=== PATIENT | female | born 1980 | race Two or more races ===

== ENCOUNTER 2020-09-07 01:32 | Inpatient (IN) | payer OTHER, SELFPAY ==
[~2020-09-07] VITALS: Ht 167.6 cm; Wt 79.4 kg
[2020-09-07] MEDS ORDERED: ROPIVACAINE 0.2%/NS PREMIX 200 ML EPI ONE (01:55)
[2020-09-07] MEDS ORDERED: ROPIVACAINE 0.2%/NS PREMIX 100 ML EPI SCH (02:15)
[2020-09-07 02:30] VITALS: BP 92/50
[2020-09-07] MEDS ORDERED: OXYTOCIN 20 UNITS in LACTATED RINGERS 1,000 ML IV SCH (02:30)
[2020-09-07] MEDS ORDERED: LIDOCAINE MPF 1% 10 MG/ML VIAL INJ SCH (02:30)
[2020-09-07] MEDS ORDERED: LACTATED RINGERS 1,000 ML IV SCH (02:30)
[2020-09-07 02:39] LABS: BASOPHILS # (AUTO) 0.1 K/uL (0.00-0.22); BASOPHILS % (AUTO) 0.4 % (0.0-2.0); EOSINOPHILS % (AUTO) 0.2 % (0.0-4.0); HEMOGLOBIN 9.4 g/dL (12.0-16.0); LYMPHOCYTES # (AUTO) 0.8 K/uL (2.5-16.5); LYMPHOCYTES % (AUTO) 5.5 % (20.5-51.1); MEAN CORPUSCULAR HEMOGLOBIN 28 pg (27-31); MEAN CORPUSCULAR HGB CONC 32 g/dL (33-37); MEAN CORPUSCULAR VOLUME 86.1 fL (80-94); MONOCYTES # (AUTO) 0.5 K/uL (0.8-1.0); MONOCYTES % (AUTO) 3.5 % (1.7-9.3); NEUTROPHILS # (AUTO) 12.6 K/uL (1.8-7.7); NEUTROPHILS % (AUTO) 90.4 % (42.2-75.2); PLATELET COUNT (AUTO) 197 K/uL (140-450); RED BLOOD CELL COUNT(AUTO) 3.37 MIL/uL (4.20-5.40); RED CELL DISTRIBUTION WIDTH 14.9 % (11.6-13.7); WHITE BLOOD COUNT (AUTO) 13.9 K/uL (4.8-10.8)
[2020-09-07 03:00] LABS: ALBUMIN 2.8 g/dL (3.4-5.0); ANION GAP 16.7 (8-16); CARBON DIOXIDE 21.2 mmol/L (21-32); CREATININE 0.7 mg/dL (0.6-1.3); POTASSIUM 3.9 mmol/L (3.5-5.1); TOTAL BILIRUBIN 0.4 mg/dL (0.0-1.0)
[2020-09-07 04:25] LABS: APPEARANCE,URINE CLEAR (CLEAR); BILIRUBIN,URINE NEGATIVE (NEGATIVE); BLOOD, URINE 3+ (NEGATIVE); COLOR,URINE YELLOW (YELLOW); LEUKOCYTE ESTERASE ,URINE NEGATIVE (NEGATIVE); NITRITE, URINE NEGATIVE (NEGATIVE); UGLUCOSE NEGATIVE (NEGATIVE)
[2020-09-07] MEDS ORDERED: OXYTOCIN 20 UNITS/LR PREMIX 1,000 ML IV ONE (04:49)
[2020-09-07] MEDS ORDERED: LIDOCAINE 1% 500 MG/50 ML VIAL ONE (04:50)
[2020-09-07] MEDS ORDERED: bisacodyL 5 MG TABEC PO PRN (05:25)
[2020-09-07] MEDS ORDERED: METHYLERGONOVINE 0.2 MG/ML AMP IM PRN (05:25)
[2020-09-07] MEDS ORDERED: SIMETHICONE 80 MG TAB.CHEW PO PRN (05:25)
[2020-09-07] MEDS ORDERED: IBUPROFEN 600 MG TAB PO PRN (05:25)
[2020-09-07] MEDS ORDERED: IBUPROFEN 800 MG TAB PO PRN (05:25)
[2020-09-07] MEDS ORDERED: BENZOCAINE/MENTHOL 20%-0.5% 60 GM CAN TP PRN (05:25)
[2020-09-07] MEDS ORDERED: MEASLES, MUMPS, AND RUBELLA 1 VIAL SQVAC PRN (05:25)
[2020-09-07] MEDS ORDERED: OXYTOCIN 10 UNITS/ML VIAL IM PRN (05:25)
[2020-09-07] MEDS ORDERED: METHYLERGONOVINE 0.2 MG TAB PO PRN (05:25)
[2020-09-07] MEDS ORDERED: DOCUSATE SODIUM 100 MG GELCAP PO PRN (05:25)
[2020-09-07 06:01] LABS: RBC,URINE 20-50 /HPF (0-5)
[2020-09-07 06:02] LABS: WBC,URINE 0-5 /HPF (0-5)
--- NOTE | 2020-09-07 08:59 | NUR ---
PATIENT HAS BEEN SCREENED AND CATEGORIZED LOW NUTRITION RISK. PATIENT WILL BE SEEN WITHIN 7 DAYS OF ADMISSION. 09/13/[address]
[2020-09-07 16:30] LABS: RAPID PLASMA REAGIN NON-REACTIVE (Non Reactiv)
[2020-09-08 08:11] LABS: HEMATOCRIT 28.1 % (36-48); HEMOGLOBIN 9.2 g/dL (12.0-16.0)
== END 2020-09-08 12:05 | disposition home or self-care (01) | DRG 807 ==
LOC: MFCC 01:32
PROVIDERS: ADMIT Obstetrics & Gynecology; ATTEND Obstetrics & Gynecology
PROC: 10E0XZZ Delivery of Products of Conception, External Approach (ICD-10-PCS; principal; 2020-09-07)
PROC: 00HU33Z Insertion of Infusion Device into Spinal Canal, Percutaneous Approach (ICD-10-PCS; 2020-09-07)
PROC: 3E0R3BZ Introduction of Anesthetic Agent into Spinal Canal, Percutaneous Approach (ICD-10-PCS; 2020-09-07)
DX: O69.81X0 Labor and delivery complicated by cord around neck, without compression, not applicable or unspecified (principal); Z37.0 Single live birth; Z3A.40 40 weeks gestation of pregnancy; O77.0 Labor and delivery complicated by meconium in amniotic fluid; O71.82 Other specified trauma to perineum and vulva; Z28.21 Immunization not carried out because of patient refusal; Z20.828 Contact with and (suspected) exposure to other viral communicable diseases
CPT/HCPCS: 36415; 51702; 59409; 80053; 81001; 85018; 85025; 86592; 86762; 86886; 86900; 86901; 87340; J2001; J2590; J2795